=== PATIENT | female | born 1985 | race Caucasian/White ===

== ENCOUNTER 2019-09-28 17:58 | Emergency (ER) | payer OTHER, SELFPAY ==
[2019-09-28 18:33] VITALS: BP 129/72; PULSE 85; RESP 16; TEMP 37.3; O2SAT 99; BMI 23.2
[2019-09-28 19:18] LABS: Basophils % 0.6 %; Eosinophils # 0.3 10^3/uL (0.0-0.8); Eosinophils % 4.3 %; Hematocrit 38.8 % (37.0-47.0); Hemoglobin 12.8 g/dL (11.5-15.3); Lymphocytes # 2.9 10^3/uL (0.8-4.8); Mean Corpuscular Volume 87.8 fL (81-99); Mean Platelet Volume 11.2 fL (7.4-10.4); Monocytes # 0.6 10^3/uL (0.2-0.9); Monocytes % 8.2 %; Neutrophils # 2.9 10^3/uL (1.8-7.7); Neutrophils % 43.8 %; Nucleated Red Blood Cells % 0 %; Platelet Count 266 10^3/cmm (130-400); Red Blood Count 4.42 10^6/uL (4.1-5.3); Red Cell Distribution Width 12.3 % (12.1-15.1); White Blood Count 6.7 10^3/uL (4.0-10.0)
[2019-09-28 19:34] LABS: Anion Gap 16.7 (5-19); Blood Urea Nitrogen 8 mg/dL (6-20); Calcium 9.5 mg/dL (8.5-10.5); Carbon Dioxide 22 mmol/L (22-29); Chloride 106 mmol/L (98-107); Glomerular Filtration Rate 96.4 mL/min (90-130); Glucose 94 mg/dL (65-115); Osmolality Calculated 288 mOsm/kg (285-295); Potassium 3.7 mmol/L (3.5-5.1); Sodium 141 mmol/L (136-145)
[2019-09-28 19:38] LABS: INR 0.99 (0.8-1.2)
--- NOTE | 2019-09-28 19:57 | ED_ITS ---
Entered by Ana Gamble, acting as scribe for Kayla Silverio MD Sep 28, 2019 17:58 HPI - GI Bleed General: Chief complaint: GI Bleed Stated complaint: DEFICATING BLOOD/TAR LIKE Time Seen by Provider: 09/28/19 19:57 Source: patient, family and RN notes reviewed Mode of arrival: ambulatory Limitations: no limitations History of Present Illness: HPI Narrative: 34 yo female presents to ED with complaints of blood in her stool. The patient states this was on 09.15.2019. She has been diagnosed with IBS in the past. She said stress is a huge trigger. She said she woke at 0300 with horrible contractions on 09.15.2019 then a couple days later she began having bloody stool. She said she has had black stools since that time. She said she has strained a little with her bowel movements but not bad. She said usually her BM's are watery. Her PCP is Dr Clayton in [place]. She denies dizziness but has LLQ pain. She takes Chantix to stop smoking; takes Botox for migraines. complaint: coffee ground emesis and gross hematemesis Onset (ago): week(s) (2) Pain Consistency: intermittent Severity: severe Relieving factors: bowel movement Exacerbating factors: bowel movement Context: other (IBS) Associated symptoms: Reports abdominal pain (LLQ); Denies chills, easy bruising, fever(s), headache(s) or rash Treatments Prior to Arrival: none Review of Systems General: Reports: 10 or more systems reviewed and unremarkable except in HPI and below Const: Denies: fever or chills Eyes: Denies: change in vision ENMT: Denies: throat pain Card: Denies: chest pain Resp: Denies: shortness of breath GI: Reports: abdominal pain (LLQ) : Denies: difficulty urinating Musc: Denies: muscle weakness Skin/Breast: Denies: rash Neuro: Denies: headache Psych: Denies: hopelessness or suicidal ideation Endo: Denies: excessive urination Jr/Lymph: Denies: easy bruising or easy bleeding All/Imm: Denies: hives PFSH ED PFSH: Statuses (acute, chronic, etc) shown below reflect problem list status as previously entered and may not be historically accurate Family History (Updated 09/24/19 @ 14:56 by Isadora Redman RN) Brother Seizure Grandmother Stroke mother Hypertension maternal Heart disease maternal Diabetes maternal Mother Hypertension Social History (Updated 09/24/19 @ 14:58 by Isadora Redman RN) Smoking and tobacco status: former smoker Alcohol intake: never Physical Exam Const: COMMON NORMALS: no apparent distress, oriented x3, alert and well nourished HENMT: COMMON NORMALS: normocephalic and external nose normal HEAD & SCALP: normocephalic NOSE: external nose normal MOUTH: no trismus Eye: COMMON NORMALS: EOMs intact bilaterally and conjunctivae normal CONJUNCTIVA: Yes conjunctivae normal Neck/C-Spine: COMMON NORMALS: full ROM, no lymphadenopathy and supple CERVICAL SPINE: Yes cervical ROM normal Lymph: LYMPHATIC: no lymphadenopathy noted Resp: COMMON NORMALS: normal respiratory effort, no retractions, no use of accessory muscles and clear to auscultation bilaterally EFFORT & INSPECTION: Yes able to speak in complete sentences AUSCULTATION: clear to auscultation bilaterally Cardio: COMMON NORMALS: regular rate and regular rhythm RATE: regular rate RHYTHM: regular rhythm GI: COMMON NORMALS: normal to inspection, nondistended, normoactive bowel sounds, soft to palpation, non-tender and no masses INSPECTION: Yes normal to inspection AUSCULTATION: Yes normoactive bowel sounds PALPATION: Yes soft, No guarding and No rigid RECTAL EXAM: visual inspection normal and normal sphincter tone OTHER: was present in the room during exam. There were no external hemorrhoids or fissures. Digital exam revealed vault void of stool bedside guaiac was negative. No internal hemorrhoids palpated Back/Pelvis: OTHER: Normal range of motion Extremity: GENERAL: Yes normal exam except as noted Neuro: COMMON NORMALS: oriented x3 and CN's II-XII intact bilaterally SENSORIUM/ORIENTATION: Yes alert SPEECH: speech normal Psych: COMMON NORMALS: mental status grossly normal Skin: COMMON NORMALS: no rashes or lesions noted GENERAL SKIN EXAM: no rashes or lesions noted Course Vital Signs: Vital signs: Vital Signs Temperature 99.2 F 09/28/19 18:33 Pulse Rate 88 09/28/19 21:40 Respiratory Rate 18 09/28/19 21:40 Blood Pressure 129/72 09/28/19 18:33 Pulse Oximetry 99 09/28/19 21:40 MDM - GI Bleed MDM Narrative: Medical decision making narrative: As discussed with the patient and her her hemoglobin is stable she needs further work-up as an outpatient for GI bleed. We discussed risk factors for gastritis/ulcers. She is not dizzy. Or lightheaded. 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 Talked about Bentyl but she tells me she has been on that for irritable bowel in the past and it makes her bloat. Lab Data: Labs: Lab Results 09/28/19 09/28/19 09/28/19 Range/Units 18:45 18:45 18:45 WBC 6.7 (4.0-10.0) 10^3/ uL RBC 4.42 (4.1-5.3) 10^6/u L Hgb 12.8 (11.5-15.3) g/dL Hct 38.8 (37.0-47.0) % MCV 87.8 (81-99) fL MCH 29.0 (28.0-34.0) pg MCHC 33.0 (30.0-36.0) g/dL RDW 12.3 (12.1-15.1) % Plt Count 266 (130-400) 10^3/c mm MPV 11.2 H (7.4-10.4) fL Neut % (Auto) 43.8 % Lymph % (Auto) 43.0 % [place] % (Auto) 8.2 % Eos % (Auto) 4.3 % Baso % (Auto) 0.6 % Neut # (Auto) 2.9 (1.8-7.7) 10^3/u L Lymph # (Auto) 2.9 (0.8-4.8) 10^3/u L [place] # (Auto) 0.6 (0.2-0.9) 10^3/u L Eos # (Auto) 0.3 (0.0-0.8) 10^3/u L Baso # (Auto) 0.0 (0.0-0.1) 10^3/u L Nucleated RBC % (a uto) 0 % Nucleated RBCs # 0.0 /100WBC PT 13.40 H (10.5-13.3) SECO NDS INR 0.99 (0.8-1.2) Sodium 141 (136-145) mmol/L Potassium 3.7 (3.5-5.1) mmol/L Chloride 106 (98-107) mmol/L Carbon Dioxide 22 (22-29) mmol/L Anion Gap 16.7 (5-19) BUN 8 (6-20) mg/dL Creatinine 0.7 (0.5-0.9) mg/dL GFR Calculation 96.4 (90-130) mL/min Glucose 94 (65-115) mg/dL Calculated Osmolal ity 288 (285-295) mOsm/k g Calcium 9.5 (8.5-10.5) mg/dL Imaging Data^: KUB: Attestation: I personally reviewed and interpreted this imaging study as follows: My impression: Moderate amount of retained stool in her colon otherwise normal. Discharge Plan Discharge Patient Disposition: Home, Self-Care Clinical Impression: GI (gastrointestinal bleed) Qualifiers: GI bleed type/associated pathology: unspecified gastrointestinal hemorrhage type Qualified Code(s): K92.2 - Gastrointestinal hemorrhage, unspecified Condition: Stable Prescriptions: New Prilosec OTC 20 mg tablet,delayed release (DR/EC) 20 mg PO DAILY Qty: 30 RF: 0 No Action medroxyprogesterone [Depo-Provera] 150 mg/mL suspension IM .every 3 months RF: 0 Referrals: John Otoole MD [Physician] - 1 week (needs further workup for BRBPR and dark stool. hg high normal no hemorrhoids on exam) Elfego Clayton [Primary Care Provider] - Haim Vines MD [Family Provider] - Patient Instructions: GI Bleeding Activity Restrictions/Additional Instructions: Call Dr. Otoole's office for follow-up appointment. Start taking Prilosec daily. Drink entire bottle of magnesium citrate when you get home. 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
--- NOTE | 2019-09-28 20:02 | PC.NURSE ---
Received patient to [facility] with complaint of blood in stools, sometime rachel sometimes black clots. Patient states she was dx with IBS in 2010. When patient gets stressed whe has watery stools. She states this is causing a cramping in her abd.
--- NOTE | 2019-09-28 20:23 | XRR_ITS ---
PROCEDURE INFORMATION: Exam: XR Abdomen, 1 View Exam date and time: 09/28/2019 9:15 PM Age: 34 years old Clinical indication: Abdominal pain; Prior surgery; Additional info: Abd pain TECHNIQUE: Imaging protocol: XR of the abdomen. Views: Frontal supine view of the abdomen. 1 View. COMPARISON: US Renal Kidney Structu* [id number] 11/29/2016 3:43 PM FINDINGS: Gastrointestinal tract: bowel gas pattern is nonspecific. Air filled large bowel including distal rectal gas. Scattered loops of air filled small bowel none of which are dilated. Large amount of stool throughout the large bowel. Bones/joints: Unremarkable. XR/XR KUB portable [id number] IMPRESSION: 1. Bowel gas pattern is nonspecific. Air filled large bowel including distal rectal gas 2. Large amount of stool throughout the large bowel.
[2019-09-28] MEDS: magnesium citrate Btl 296 mL 150 ML PO (21:32)
[2019-09-28 21:40] VITALS: PULSE 88; RESP 18; O2SAT 99
--- NOTE | 2019-10-01 08:53 | DCPLANNER ---
nursing agency manager had message to schedule a follow up appointment for patient with Dr. Santos. nursing agency manager called patient to confirm that she would like for shoe parts caser to schedule that follow up appointment. nursing agency manager unable to speak with patient at this time, a voicemail was left for patient to return caser up phone call. nursing agency manager called [phone].
== END 2019-09-28 21:44 | disposition home or self-care (01) ==
PROVIDERS: Emergency Medicine; Emergency Provider Emergency Medicine; Family Provider Family Medicine; PCP Family Medicine
DX: K92.2 Gastrointestinal hemorrhage, unspecified (principal); Z87.891 Personal history of nicotine dependence
CPT/HCPCS: 36415; 74018; 80048; 85025; 85610; 99281; 99283

== ENCOUNTER → 2020-03-28 15:15 | Outpatient (BNVA) | payer OTHER, SELFPAY | PROVIDERS: Family Provider Family Medicine; PCP Family Medicine; Visit Provider Obstetrics & Gynecology | DX: N64.52 Nipple discharge (principal) | CPT/HCPCS: 84146; 84443; 84702 ==

== ENCOUNTER → 2020-04-17 14:50 | Outpatient (BNVA) | payer OTHER, SELFPAY | PROVIDERS: Family Provider Family Medicine; PCP Family Medicine; Visit Provider Obstetrics & Gynecology | DX: Z30.9 Encounter for contraceptive management, unspecified (principal); Z30.42 Encounter for surveillance of injectable contraceptive | CPT/HCPCS: 81025 ==

== ENCOUNTER → 2020-04-18 12:17 | Outpatient (BNVA) | payer OTHER, SELFPAY | PROVIDERS: Family Provider Family Medicine; PCP Family Medicine; Visit Provider Obstetrics & Gynecology | DX: N64.52 Nipple discharge (principal) | CPT/HCPCS: 88112; 88305 ==